=== PATIENT | male | born 1985 | race African-American/Black ===

== ENCOUNTER 2017-03-07 16:01 | Emergency (ER) | payer SELFPAY ==
[~2017-03-07] VITALS: Ht 193 cm; Wt 107.7 kg
[2017-03-07] MEDS ORDERED: ATIVAN0.5 MG PO (17:50)
[2017-03-07] MEDS ORDERED: CIPRODEX OTIC7.5 ML BOTH EARS (17:50)
[2017-03-07] MEDS ORDERED: NORCO 5/3251 TABLET PO (17:50)
[2017-03-07] MEDS ORDERED: POLYTRIM EYE DR10 ML BOTH EYES (18:06)
[2017-03-07 18:12] VITALS: BP 135/62
== END 2017-03-07 18:13 | disposition home or self-care (01) ==
LOC: EME 16:01
DX: H10.9 Unspecified conjunctivitis (principal); F17.200 Nicotine dependence, unspecified, uncomplicated
CPT/HCPCS: 99281; 99284